=== PATIENT | male | born 1980 | race Caucasian/White ===

== ENCOUNTER 2024-11-23 00:53 | Emergency (ER) | payer MEDICAID ==
[~2024-11-23] VITALS: Ht 182.9 cm; Wt 62.0 kg
[2024-11-23 01:19] VITALS: O2SAT 98
[2024-11-23] MEDS: CEFTRIAXONE SODIUM 500MG VIAL IM ONE (02:59)
[2024-11-23 03:03] VITALS: BP 109/69; PULSE 99; RESP 16; TEMP 36.9; O2SAT 100
[2024-11-23] MEDS: LIDOCAINE HCL/PF 1% 10 MG/ML 5ML VIAL INFIL ONE (03:05)
== END 2024-11-23 04:56 | disposition left against medical advice (07) ==
LOC: ER 00:53
DX: Z20.2 Contact with and (suspected) exposure to infections with a predominantly sexual mode of transmission (principal)
CPT/HCPCS: 96372; 99283; J0696; J2003; Z7610

== ENCOUNTER 2025-02-17 23:41 | Emergency (ER) | payer MEDICAID ==
[~2025-02-17] VITALS: Ht 170.2 cm; Wt 79.0 kg
[2025-02-17 23:52] VITALS: BP 123/79; PULSE 92; RESP 16; TEMP 37; O2SAT 98
== END 2025-02-18 02:27 | disposition left against medical advice (07) ==
LOC: ER 23:57
DX: R51.9 Headache, unspecified (principal); Z53.21 Procedure and treatment not carried out due to patient leaving prior to being seen by health care provider; V29.91XA Electric (assisted) bicycle rider (driver) (passenger) injured in unspecified traffic accident, initial encounter; Y93.89 Activity, other specified; Y92.89 Other specified places as the place of occurrence of the external cause; Y99.8 Other external cause status